=== PATIENT | female | born 1980 | race Caucasian/White ===

== ENCOUNTER → 2019-09-11 | Outpatient (CLI) | payer OTHER ==
--- NOTE | 2019-09-11 13:51 | Diagnostic Imaging Report ---
Exam: Abdominal film Clinical History: Follow-up kidney stones Comparison: No films are available for comparison. DISCUSSION: Frontal view of the abdomen shows a nonobstructive bowel gas pattern with moderate to marked amount of retained stool, which partially overlies the renal shadows..There are no dilated, air-filled loops of bowel. No radiopaque densities project over the renal shadows, expected course of the ureters or bladder. No acute bone abnormality. IMPRESSION: 1. Moderate to marked amount of retained stool, which partly overlies and obscures the renal shadows. 2. No radiopaque densities project over the genitourinary system. The staff physician below has personally reviewed this exam on the date of dictation. Signed by: Dr. Semaj Davis M.D. on 09/11/2019 1:47 PM
== END ==
LOC: RAD 11:02
PROVIDERS: ATTEND Urology
DX: Z09 Encounter for follow-up examination after completed treatment for conditions other than malignant neoplasm (principal); N20.0 Calculus of kidney
CPT/HCPCS: 74018; 81025